=== PATIENT | female | born 1975 | race Caucasian/White ===

== ENCOUNTER 2017-05-12 08:14 | Day surgery (SDC) | payer OTHER ==
--- NOTE | 2017-05-03 14:50 | HP ---
PREOPERATIVE HISTORY AND PHYSICAL: DATE OF SURGERY/ADMISSION: 05/12/17 [facility] ATTENDING PHYSICIAN: Yumiko Purcell MD * (DICTATED BY JUSTO CHRISTIANSEN) PROCEDURE: Left long and ring trigger finger releases, and wrist and hand mass excision, and wrist carpal tunnel release. CHIEF COMPLAINT: Left long and ring trigger fingers, masses left wrist and hand , and median nerve compression of the left wrist. HISTORY OF PRESENT ILLNESS: This is a 42-year-old female who has several complaints regarding her left hand and wrist. She has had an ulnar volar mass excised 2 times, but it has recurred and it apparently is causing some numbness and tingling to travel into her hand, median nerve distribution. She also complains of a lump in the palm of her hand. She has stiffness in the ring and long fingers that has been ongoing for approximately 8 months. She had a cortisone injection for trigger fingers in the past, which was helpful; however , the symptoms have returned. She has consented to proceed with surgical intervention at this time for all of these problems in the form of left long and ring finger trigger finger releases, excision of the masses on both the wrist and the hand, and a left wrist carpal tunnel release. PAST MEDICAL HISTORY: Diabetes, diet controlled. PAST SURGICAL HISTORY: 1. Gastric bypass, 2003. 2. Uterine ablation, 2014. 3. Left wrist cyst excision, 1992 and 2015. 4. Ovarian tubal cyst excision, 2008. 5. Tummy tuck. CURRENT MEDICATIONS: 1. Multivitamin daily. 2. Probiotic daily. 3. Stool softener 100 mg 1 tab b.i.d. p.r.n. constipation. ALLERGIES: No known drug allergies. FAMILY MEDICAL HISTORY: Significant for skin cancer, diabetes and fibromyalgia. 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 She is a former regular smoker, although admits to still smoking socially on an irregular basis. She denies current recreational drug use. She does drink alcohol, generally wine 2 to 3 times a week. REVIEW OF SYSTEMS: General: Negative for fevers, chills, or night sweats. No known anesthesia problems. HEENT: Negative for headache, lightheadedness, or syncopal episodes. Integumentary: Negative for abrasions, lesions, or open wounds. Cardiothoracic: Negative for chest pain, palpitations, and edema. Negative for hypertension. Pulmonary: Negative for shortness of breath with exertion, chronic cough, or COPD. GI: Positive for constipation related to gastric bypass surgery. Negative for nausea, vomiting, diarrhea, or GERD. : Negative for nocturia, urinary frequency, urgency, history of UTIs, or kidney problems. Musculoskeletal: Positive for current complaint. Negative for chronic or intermittent back pain or history of fractures. Neurological: Negative for history of seizures, stroke, or epilepsy. Endocrine: Positive for diabetes which is diet controlled. Negative for thyroid issues. Hematologic: Negative for easy bruising, anemia, excessive bleeding, or history of DVT. Infectious Disease: Negative for history of MRSA, hepatitis C, or HIV. PHYSICAL EXAMINATION GENERAL: Well-developed, well-nourished 42-year-old female in no acute distress. VITAL SIGNS: Height 5 feet 4 inches, weight 205 pounds. Pulse rate 77, blood pressure 150/78. HEENT: Normocephalic, atraumatic. Pupils are equal, round, and reactive to light and accommodation. Extraocular movements are intact. Throat is clear. NECK: Supple. No palpable lymph nodes. PULMONARY: Lungs are clear to auscultation bilaterally. No wheezes, rales, or rhonchi. CARDIOVASCULAR: Regular rate and rhythm. S1, S2. No murmurs, rubs, or gallops. No edema. ABDOMEN: Positive bowel sounds, soft, nontender. MUSCULOSKELETAL: On exam of her left wrist and hand, there is a 3 cm diameter mass on the volar ulnar aspect of the left wrist. It is tender to palpation. She has a positive Tinel's over the mass, which shoots up into the palm of her hand and her index finger. She also appears to have what is a Dupuytren's nodule in the left palm. She also has tenderness to palpation at the A1 pulleys of the left long and ring trigger fingers. She has difficulty reaching full flexion with both of those fingers. NEUROLOGICAL: Alert and oriented x3. Cranial nerves II through XII are intact. IMPRESSION: Left long and ring trigger fingers, left wrist and hand mass, and left carpal tunnel syndrome. PLAN: The patient is scheduled to undergo a left long and ring trigger finger release, and wrist and hand mass excision, and wrist carpal tunnel release with Dr. Purcell on 12/22/17. She will return to the office 10 to 14 days postop for followup and suture removal. A prescription for Ultracet was e-scribed to the patient's pharmacy for postoperative pain management. JUSTO CHRISTIANSEN [id number]/[facility] #: [id number]
[~2017-05-12 08:14] MED LIST: Buffered Lidocaine 0.9% SYRIN* 5 ML/SYR SYRINGE INTRADERM ONE
[2017-05-12] MEDS ORDERED: Lidocaine 1% INJ* 10 MG/ML 30 ML SDV ONE ×2 (09:01→09:46)
[2017-05-12] MEDS ORDERED: Midazolam* 1 MG/ML 2 ML VIAL (2 MG) ONE ×3 (09:45→10:54)
[2017-05-12] MEDS ORDERED: fentaNYL* 50 MCG/ML 2 ML VIAL (100 MCG VIAL) ONE (09:45)
[2017-05-12] MEDS ORDERED: Propofol* 10 MG/ML 20 ML BTL IV PUSH ONE (09:50)
[2017-05-12 11:25] VITALS: BP 117/71
--- NOTE | 2017-05-13 00:02 | OP ---
CC: Dr. Purcell OPERATIVE REPORT: DATE OF OPERATION: 05/12/17 DATE OF : 71 SURGEON: Yumiko Purcell MD TUNNEL ELASTIC OPERATOR LOCKSTITCH: JUSTO Herrera ANESTHESIA: Local MAC. PRE-OP DIAGNOSES: Left ring and long finger trigger finger, left hand mass, left wrist mass, left ca rpal tunnel syndrome. POST-OP DIAGNOSES: Left ring and long finger trigger finger, left hand mass, left wrist mass, left c arpal tunnel syndrome including marked flexor tenosynovitis. OPERATIVE PROCEDURE: Left long and ringer finger trigger release, left carpal tunnel release, remova l of hand mass which appeared to be a Dupuytren's nodule and removal of wrist mass, which appeared to be abundant tenosynovitis of the flexor tendons. ESTIMATED BLOOD LOSS: Zero. TOURNIQUET TIME: Approximately 35 minutes. INDICATIONS FOR PROCEDURE: Starla is a 42-year-old female with triggering of her left long and rin g finger, numbness and tingling in the median nerve distribution of her left hand, a small Dupuytren' s nodule in the palm of her hand and large recurrent wrist mass. She presents for trigger releases, carpal tunnel release, and wrist and hand mass excision. DESCRIPTION OF PROCEDURE: The patient was brought to the operating room, was given sedation anesthet ic and a local infiltration of a total of 30 cc of 1% plain lidocaine. The skin of her left upper ex tremity was prepped and draped in the usual sterile fashion. The hand and forearm were exsanguinated and the tourniquet elevated to 250 mmHg. A transverse incision was made over the A1 pulleys of the ring and middle fingers and the small Dupuytren's nodule underlying the skin in line with the ring fi nger was excised through this incision. The A1 pulleys were both approached and incised longitudinal ly, completely releasing the flexor tendons which were in good condition. The wound was irrigated an d the skin edges reapproximated with 4-0 nylon suture. Next, a longitudinal incision was made in the palm in line with the ring finger. We dissected through the subcutaneous tissue down to the transve rse carpal ligament. The ligament was divided sharply with the knife and then more proximally with t he scissors. The nerve was dissected free from the surrounding tissue and there is abundant fluid in the carpal tunnel. The nerve appeared compressed at the midportion of the ligament significantly. T he wound was irrigated and the skin edges reapproximated with 4-0 nylon suture. Next, the scar from the previous wrist mass excision was incised and there was some moderate amount of scar tissue under the incision this was debrided. The ulnar artery and nerve were located and carefully retracted. Th ere was abundant tenosynovitis surrounding the flexor tendons and this was debrided as much as curtis moreno. The tendons were in good condition. The wound was irrigated and skin edges reapproximated with 4-0 nylon suture. The wound was dressed with Xeroform, 4x4, Webril and an Darell wrap. The patient toshia erated the procedure well and was brought to the recovery room in good condition. Please note that t he flexor tenosynovitis was sent for pathology to rule out rheumatoid arthritis or inflammatory arthr itis. [id number]/[facility] #: [id number]
== END 2017-05-12 11:41 | disposition home or self-care (01) ==
LOC: OREAST 08:14
PROVIDERS: ATTEND Orthopaedic Surgery
DX: M65.342 Trigger finger, left ring finger (principal); M65.332 Trigger finger, left middle finger; G56.02 Carpal tunnel syndrome, left upper limb; M72.0 Palmar fascial fibromatosis [Dupuytren]; E11.9 Type 2 diabetes mellitus without complications; M65.832 Other synovitis and tenosynovitis, left forearm; F17.200 Nicotine dependence, unspecified, uncomplicated
CPT/HCPCS: 81025; 88304; J2250; J2704; J3010